=== PATIENT | female | born 1995 ===

== ENCOUNTER 2020-12-18 08:01 | Inpatient (IN) ==
[2020-12-18] MEDS ORDERED: Famotidine 20 MG/2 ML VIAL IVP PRN (08:43)
[2020-12-18] MEDS ORDERED: Metoclopramide 10 MG/2 ML VIAL IVP PRN (08:43)
[2020-12-18] MEDS ORDERED: Azithromycin 500 MG in 0.9 % Sodium Chloride 250 ML IVPB ONE (08:43)
[2020-12-18] MEDS ORDERED: Ondansetron 4 MG/2 ML VIAL IVP PRN (08:43)
[2020-12-18] MEDS ORDERED: *HR* Nalbuphine 10 MG/ML AMPUL IV PRN (08:43)
[2020-12-18] MEDS ORDERED: Lidocaine 1% 20 ML MDV INFILT PRN (08:43)
[2020-12-18] MEDS ORDERED: Naloxone 0.4 MG/ML INJ IVP PRN (08:43)
[2020-12-18] MEDS ORDERED: miSOPROStoL 25 MCG TABLET PO ONE (08:46)
[2020-12-18 09:16] LABS: Basophils # 0.1 K/mcL (0.0-0.2); Basophils % 0.5 %; Eosinophils % 0.3 %; Hematocrit 36.8 % (35.3-44.9); Hemoglobin 12.1 g/dL (11.5-15.4); Immature Granulocytes % 0.5 % (0-4); Lymphocytes # 1.5 K/mcL (0.6-4.6); Lymphocytes % 15.5 %; Mean Corpuscular HGB Conc 32.9 g/dL (31.6-35.5); Mean Corpuscular Hemoglobin 29.7 pg (28.0-33.3); Mean Corpuscular Volume 90.2 fL (83.0-100.0); Mean Platelet Volume 10.7 fL (9.4-12.4); Monocytes # 0.6 K/mcL (0.0-1.3); Monocytes % 6.1 %; Neutrophils # 7.4 K/mcL (1.6-8.9); Platelet Count 209 K/mcL (140-400); Red Blood Count 4.08 M/mcL (3.82-4.97); Red Cell Distribution Width 14.2 % (11.5-14.5); Segmented Neutrophils % 77.1 %; White Blood Count 9.6 K/mcL (4.3-11.1)
[2020-12-18] MEDS ORDERED: EPHEDrine 50 MG/ML VIAL IVP PRN (09:32)
[2020-12-18 09:44] LABS: Influenza A PCR Negative (Negative); Influenza B PCR Negative (Negative); Resp. Syncytial Virus PCR Negative (Negative)
[2020-12-18 09:56] LABS: Opiate Screen,Urine Negative ng/mL (Cutoff=300)
[2020-12-18] MEDS ORDERED: CeFAZolin 2,000 MG/50 ML BAG IVPB ONE (10:01)
[2020-12-18 10:20] LABS: SARS-CoV-2 by PCR (In House) Negative (Negative)
[2020-12-18 10:59] LABS: Amphetamine Screen,Urine Negative ng/mL (Cutoff=1000); Barbiturate Screen,Urine Negative ng/mL (Cutoff=200); Benzodiazepines Screen,Urine Negative ng/mL (Cutoff=200); Cannabinoid Screen,Urine Negative ng/mL (Cutoff = 50); Cocaine Screen,Urine Negative ng/mL (Cutoff= 300); Phencyclidine Screen,Urine Negative ng/mL (Cutoff=25)
[2020-12-18] MEDS: Ringers Solution, Lactated 1,000 ML IVC SCH ×3 (12:24→17:57)
[2020-12-18] MEDS: Epidural Premix (fent/bupiv) 110 ML EP SCH ×2 (13:03→18:37)
[2020-12-18] MEDS ORDERED: Oxytocin 20 units/ LR 1000 mL 20 UNIT/1,000 ML BAG IVC SCH (14:30)
[2020-12-19] MEDS ORDERED: Measles/Mumps/Rubella Vacc 0.5 ML VIAL SQ PRN (01:52)
[2020-12-19] MEDS ORDERED: Oxytocin 20 units/ LR 1000 mL 20 UNIT/1,000 ML BAG IVC ONE (01:52)
[2020-12-19] MEDS ORDERED: Rho Immune Globulin 1,500 UNIT SYRINGE IM PRN (01:52)
[2020-12-19] MEDS ORDERED: Oxytocin 20 units/ LR 1000 mL 20 UNIT/1,000 ML BAG IVC SCH (01:52)
[2020-12-19] MEDS ORDERED: Benzocaine/Menthol 56 GM AEROSOL SPRAY TP PRN (01:52)
[2020-12-19] MEDS ORDERED: Acetaminophen 325 MG TABLET PO PRN (01:52)
[2020-12-19 05:05] LABS: Basophils % 0.2 %; Eosinophils % 0.1 %; Hemoglobin 12.5 g/dL (11.5-15.4); Immature Granulocytes % 0.6 % (0-4); Lymphocytes # 1.2 K/mcL (0.6-4.6); Lymphocytes % 6.2 %; Mean Corpuscular HGB Conc 32.1 g/dL (31.6-35.5); Mean Corpuscular Hemoglobin 29.3 pg (28.0-33.3); Mean Corpuscular Volume 91.5 fL (83.0-100.0); Mean Platelet Volume 10.8 fL (9.4-12.4); Monocytes # 0.8 K/mcL (0.0-1.3); Monocytes % 4.2 %; Neutrophils # 16.9 K/mcL (1.6-8.9); Platelet Count 201 K/mcL (140-400); Red Blood Count 4.26 M/mcL (3.82-4.97); Red Cell Distribution Width 13.8 % (11.5-14.5); Segmented Neutrophils % 88.7 %
[2020-12-19 05:07] LABS: White Blood Count 19.1 K/mcL (4.3-11.1)
[2020-12-19] MEDS: Prenatal Vit/FA 1 EACH TABLET PO SCH (08:56)
[2020-12-19] MEDS: Aspirin Enteric Coated 81 MG Tablet PO SCH (08:56)
[2020-12-19] MEDS: *HR* HYDROcodone/Acet 5/325 mg TABLET PO PRN ×2 (08:56→15:32)
[2020-12-19] MEDS ORDERED: Magnesium Sulfate 1 EACH PACKAGE TP PRN (10:26)
[2020-12-19] MEDS ORDERED: Lanolin 7 G OINT...G. TP PRN (12:46)
[2020-12-19] MEDS: Ibuprofen 600 MG TABLET PO PRN (20:51)
[2020-12-20 06:09] LABS: Basophils # 0.1 K/mcL (0.0-0.2); Basophils % 0.4 %; Eosinophils # 0.1 K/mcL (0.0-0.6); Hematocrit 36.9 % (35.3-44.9); Hemoglobin 11.6 g/dL (11.5-15.4); Immature Granulocytes % 0.3 % (0-4); Lymphocytes # 2.2 K/mcL (0.6-4.6); Lymphocytes % 18.3 %; Mean Corpuscular HGB Conc 31.4 g/dL (31.6-35.5); Mean Corpuscular Hemoglobin 29.3 pg (28.0-33.3); Mean Corpuscular Volume 93.2 fL (83.0-100.0); Mean Platelet Volume 10.9 fL (9.4-12.4); Monocytes # 0.6 K/mcL (0.0-1.3); Monocytes % 4.6 %; Neutrophils # 9.2 K/mcL (1.6-8.9); Platelet Count 189 K/mcL (140-400); Red Blood Count 3.96 M/mcL (3.82-4.97); Red Cell Distribution Width 14.1 % (11.5-14.5); Segmented Neutrophils % 75.4 %; White Blood Count 12.2 K/mcL (4.3-11.1)
[2020-12-20] MEDS: Ibuprofen 600 MG TABLET PO PRN (08:13)
[2020-12-20] MEDS: Aspirin Enteric Coated 81 MG Tablet PO SCH (08:13)
[2020-12-20] MEDS: Prenatal Vit/FA 1 EACH TABLET PO SCH (08:13)
[2020-12-20 08:36] VITALS: BP 123/81
== END 2020-12-20 12:36 | disposition home or self-care (01) | DRG 768 ==
LOC: 1NENULAB 08:01 → 1NENUOBS 12-19 01:35
PROVIDERS: ADMIT Obstetrics & Gynecology; ATTEND Obstetrics & Gynecology